=== PATIENT | male | born 1985 | race Caucasian/White ===

== ENCOUNTER 2016-10-04 15:04 | Emergency (ER) | payer OTHER ==
[2016-10-04] MEDS ORDERED: BACTRIM 160MG/800MG DS TAB As Ordered ONE (16:41)
--- NOTE | 2016-10-04 16:47 | EDDOCDS ---
Nurse's Notes [facility] Name: Ayush Ochoa Age: 31 yrs Sex: Male : 1985 Arrival Date: 10/04/2016 Time: 15:04 Bed Triage 2 Private MD: [facility] Diagnosis: Cutaneous abscess of groin-vs lymphadenopathy;Dysuria Presentation: 10/04 15:16 Presenting complaint: Patient states: Lump to left groin area. Having some erectile jo3 dysfunction for approximately 2 weeks. Went to PCP 1 month ago and was noted to have asymptomatic blood in urine. Has not yet followed up. STD screening completed at that time and all was negative. Adult Sepsis Screening: The patient does not have new or worsening altered mentation. Patient's respiratory rate is less than 22. Systolic blood pressure is greater than 100. Patient has a qSOFA score of 0- Negative Sepsis Screen. Suicide/Homicide risk assessment- the patient denies having any suicidal and/or homicidal ideations and does not present with any other emotional, behavioral or mental health complaints. Status: Patient is not a rural service engineer or dependent. Transition of care: patient was not received from another setting of care. 15:16 Acuity: JAMES Level 3 jo3 15:16 Method Of Arrival: Walkin/Carried/Asstd jo3 Triage Assessment: 15:20 General: Appears in no apparent distress, comfortable, Behavior is appropriate for age, jo3 cooperative, pleasant. Pain: Pain currently is 1 out of 10 on a pain scale. HIV screening NA for this visit Offered previously. Neurological: No deficits noted. Level of Consciousness is awake, alert, Oriented to person, place, time. Respiratory: Airway is patent Respiratory effort is even, unlabored. Derm: Skin is pink, warm & dry. Historical: - Allergies: No known drug Allergies; - Home Meds: 1. none - PMHx: Kidney stones; - PSHx: Appendectomy; - Social history: Smoking status: Patient uses tobacco products, heavy tobacco smoker. No barriers to communication noted, The patient speaks fluent Algerian, Speaks appropriately for age. - Family history: Not pertinent. - : The pt / caregiver states he / she is not on anticoagulants. Home medication list is obtained from the patient. - Exposure Risk Screening:: None identified. Screenin:45 Screening information is obtained from the patient. Fall risk: No risks identified. pml Assistance ADL's: requires no assistance with activities of daily living. Abuse/DV Screen: The patient / caregiver reports he/she is: not in a situation that causes fear, pain or injury. Nutritional screening: No deficits noted. Advance Directives: Currently, there is no health care proxy. home support is adequate. Assessment: 16:45 General: Appears in no apparent distress, comfortable, Behavior is appropriate for age, pml cooperative. Pain: Location: pelvis Pain currently is 6 out of 10 on a pain scale. Neurological: Level of Consciousness is awake, alert, Oriented to person, place, time. Cardiovascular: Capillary refill < 3 seconds. Respiratory: Airway is patent Respiratory effort is even, unlabored. GI: Abdomen is non- distended. Derm: Skin is pink, warm & dry. Vital Signs: 15:07 BP 147 / 91 LA Sitting (auto/reg); Pulse 87 LA; Resp 18 S; Temp 98.6(O); Pulse Ox 100% mt4 on R/A; Weight 74.84 kg (R); Height 6 ft. 1 in. (185.42 cm) (R); Pain 1/10; 15:07 Body Mass Index 21.77 (74.84 kg, 185.42 cm) mt4 Vitals: 15:07 Log In Time: October 04, 2016 at 15:04. mt4 ED Course: 15:05 Patient visited by Kathleen Hale. mt4 15:05 Patient moved to Waiting mt4 15:06 [facility] is Private Physician. mt4 15:07 Patient moved to Pre E mt4 15:19 Triage Initiated jo3 15:21 Patient visited by Candy Campbell RN. jo3 15:26 Patient moved to Triage 2 sew 15:39 Patient name changed from Ayush\S\J\S\Gabriela\S\ to Ayush\S\Deepak\S\Gabriela. EDMS 15:41 [place] [place] was scanned into [employer] and attached to record. gb 16:30 [facility]iesha Head [facility]-C [facility] dt4 16:30 Wilbur Koenig MD is Attending Physician. dt4 16:30 Patient visited by Tiesha Head PA-C. dt4 16:40 Cheyenne Barswell MD is Referral Physician. dt4 16:45 The patient / caregiver is instructed regarding the plan of care and ED course. Patient pml has correct armband on for positive identification. Bed in low position. Call light in reach. 16:45 No IV's were initiated during this patient's visit. No procedures done that require pml assistance. Administered Medications: 16:45 Drug: Trimethoprim-Sulfamethoxazole 1 tabs [sulfamethoxazole 800 mg-trimethoprim 160 mg pml tablet (1 tabs)] Route: PO; Order Results: There are currently no results for this order. Outcome: 16:40 Discharge ordered by Provider. dt4 16:45 Discharge Assessment: Patient awake, alert and oriented x 3. No cognitive and/or pml functional deficits noted. Patient verbalized understanding of disposition instructions. patient administered narcotics - no. The following High Risk Discharge criteria are identified: None. Discharged to home ambulatory. Condition: good Condition: stable. Discharge instructions given to patient, Instructed on discharge instructions, follow up and referral plans. medication usage, Demonstrated understanding of instructions, medications, Pt was receptive of discharge instructions/ teaching. Prescriptions given X 1. No special radiology studies were completed. Property sent home with patient. 16:46 Patient left the ED. pml Signatures: Dispatcher [employer] EDMS Marisela Barnhart, Reg Reg Candy Aguilar RN RN jo3 Thomas, Melissa mt4 Elise Danielle RN RN pml Wallace, Sarah sew Tschudi, Diane, RIANA PA-C dt4 MTDD
--- NOTE | 2016-10-04 16:47 | EDDOCDS ---
Physician Documentation [facility] Name: Ayush Ochoa Age: 31 yrs Sex: Male : 1985 Arrival Date: 10/04/2016 Time: 15:04 Bed Triage 2 Private MD: [facility] Disposition: 10/04/16 16:40 Discharged to Home/Self Care. Impression: Cutaneous abscess of groin - vs lymphadenopathy, Dysuria. - Condition is Stable. - Discharge Instructions: Abscess, Dysuria. - Prescriptions for Bactrim DS 800- 160 mg Oral Tablet - take 1 tablet by ORAL route every 12 hours for 7 days; 14 tablet. - Medication Reconciliation, Local Pharmacy Hours form. - Follow up: Emergency Department; When: As needed; Reason: Worsening of conditions. Follow up: Cheyenne Braswell MD; When: Call to arrange an appointment; Reason: Wound/Symptom Recheck, Further diagnostic work-up, Recheck today's complaints, Continuance of care, To establish care. - Problem is new. - Symptoms are unchanged. - Notes: TAKE THE ANTIBIOTIC DIRECTED UNTIL IT IS GONE. CALL DR. BRASWELL'S OFFICE TOMORROW TO SCHEDULE AN APPOINTMENT TO BE SEEN. Historical: - Allergies: No known drug Allergies; - Home Meds: 1. none - PMHx: Kidney stones; - PSHx: Appendectomy; - Social history: Smoking status: Patient uses tobacco products, heavy tobacco smoker. No barriers to communication noted, The patient speaks fluent Faroese, Speaks appropriately for age. - Family history: Not pertinent. - : The pt / caregiver states he / she is not on anticoagulants. Home medication list is obtained from the patient. - Exposure Risk Screening:: None identified. Vital Signs: 10/04 15:07 BP 147 / 91 LA Sitting (auto/reg); Pulse 87 LA; Resp 18 S; Temp 98.6(O); Pulse Ox 100% mt4 on R/A; Weight 74.84 kg / 164.99 lbs (R); Height 6 ft. 1 in. (185.42 cm) (R); Pain 1/10; 15:07 Body Mass Index 21.77 (74.84 kg, 185.42 cm) mt4 MDM: 15:41 [place] [place] was scanned into [employer] and attached to record. gb 16:39 Trimethoprim-Sulfamethoxazole 160 mg-800 mg (DS) 1 tabs PO once ordered. dt4 16:45 Trimethoprim-Sulfamethoxazole 160 mg-800 mg (DS) 1 tabs PO once ordered. pml Administered Medications: 16:45 Drug: Trimethoprim-Sulfamethoxazole 1 tabs [sulfamethoxazole 800 mg-trimethoprim 160 mg pml tablet (1 tabs)] Route: PO; Signatures: Marisela Barnhart, Lucas Reg gb Candy Campbell RN RN jo3 Elise Danielle RN RN pml Tiesha Head, RIANA PANarciso dt4 The chart was reviewed and I authenticate all verbal orders and agree with the evaluation and treatment provided.Attachments: 15:41 [place] [place] gb MTDD
--- NOTE | 2016-10-06 17:48 | EDDOCDS ---
Physician Documentation [facility] Name: Ayush Ochoa Age: 31 yrs Sex: Male : 1985 Arrival Date: 10/04/2016 Time: 15:04 Bed Triage 2 Private MD: [facility] Disposition: 10/04/16 16:40 Discharged to Home/Self Care. Impression: Cutaneous abscess of groin - vs lymphadenopathy, Dysuria. - Condition is Stable. - Discharge Instructions: Abscess, Dysuria. - Prescriptions for Bactrim DS 800- 160 mg Oral Tablet - take 1 tablet by ORAL route every 12 hours for 7 days; 14 tablet. - Medication Reconciliation, Local Pharmacy Hours form. - Follow up: Emergency Department; When: As needed; Reason: Worsening of conditions. Follow up: Cheyenne Braswell MD; When: Call to arrange an appointment; Reason: Wound/Symptom Recheck, Further diagnostic work-up, Recheck today's complaints, Continuance of care, To establish care. - Problem is new. - Symptoms are unchanged. - Notes: TAKE THE ANTIBIOTIC DIRECTED UNTIL IT IS GONE. CALL DR. BRASWELL'S OFFICE TOMORROW TO SCHEDULE AN APPOINTMENT TO BE SEEN. Historical: - Allergies: No known drug Allergies; - Home Meds: 1. none - PMHx: Kidney stones; - PSHx: Appendectomy; - Social history: Smoking status: Patient uses tobacco products, heavy tobacco smoker. No barriers to communication noted, The patient speaks fluent Pashto, Speaks appropriately for age. - Family history: Not pertinent. - : The pt / caregiver states he / she is not on anticoagulants. Home medication list is obtained from the patient. - Exposure Risk Screening:: None identified. Vital Signs: 10/04 15:07 BP 147 / 91 LA Sitting (auto/reg); Pulse 87 LA; Resp 18 S; Temp 98.6(O); Pulse Ox 100% mt4 on R/A; Weight 74.84 kg / 164.99 lbs (R); Height 6 ft. 1 in. (185.42 cm) (R); Pain 1/10; 15:07 Body Mass Index 21.77 (74.84 kg, 185.42 cm) mt4 MDM: 15:41 [facility] [place] Payment Agreement was scanned into [email or web address] and attached to record. gb 16:39 Trimethoprim-Sulfamethoxazole 160 mg-800 mg (DS) 1 tabs PO once ordered. dt4 16:45 Trimethoprim-Sulfamethoxazole 160 mg-800 mg (DS) 1 tabs PO once ordered. pml 22:17 T-Sheet-- Draft Copy was scanned into [email or web address] and attached to record. klr Administered Medications: 16:45 Drug: Trimethoprim-Sulfamethoxazole 1 tabs [sulfamethoxazole 800 mg-trimethoprim 160 mg pml tablet (1 tabs)] Route: PO; Signatures: Marisela Barnhart, Reg Reg gb Candy CampbellRN RN jo3 Elise DanielleRN RN pml Tiesha Head, RIANA PANarciso dt4 Jennifer San The chart was reviewed and I authenticate all verbal orders and agree with the evaluation and treatment provided.Attachments: 15:41 REPLACED BY [facility] Payment Agreement gb 22:17 T-Sheet-- Draft Copy klr Chart Complete MTDD
--- NOTE | 2016-10-06 17:48 | EDDOCDS ---
Physician Documentation [facility] Name: Ayush Ochoa Age: 31 yrs Sex: Male : 1985 Arrival Date: 10/04/2016 Time: 15:04 Bed Triage 2 Private MD: [facility] Disposition: 10/04/16 16:40 Discharged to Home/Self Care. Impression: Cutaneous abscess of groin - vs lymphadenopathy, Dysuria. - Condition is Stable. - Discharge Instructions: Abscess, Dysuria. - Prescriptions for Bactrim DS 800- 160 mg Oral Tablet - take 1 tablet by ORAL route every 12 hours for 7 days; 14 tablet. - Medication Reconciliation, Local Pharmacy Hours form. - Follow up: Emergency Department; When: As needed; Reason: Worsening of conditions. Follow up: Cheyenne Braswell MD; When: Call to arrange an appointment; Reason: Wound/Symptom Recheck, Further diagnostic work-up, Recheck today's complaints, Continuance of care, To establish care. - Problem is new. - Symptoms are unchanged. - Notes: TAKE THE ANTIBIOTIC DIRECTED UNTIL IT IS GONE. CALL DR. BRASWELL'S OFFICE TOMORROW TO SCHEDULE AN APPOINTMENT TO BE SEEN. Historical: - Allergies: No known drug Allergies; - Home Meds: 1. none - PMHx: Kidney stones; - PSHx: Appendectomy; - Social history: Smoking status: Patient uses tobacco products, heavy tobacco smoker. No barriers to communication noted, The patient speaks fluent Bulgarian, Speaks appropriately for age. - Family history: Not pertinent. - : The pt / caregiver states he / she is not on anticoagulants. Home medication list is obtained from the patient. - Exposure Risk Screening:: None identified. Vital Signs: 10/04 15:07 BP 147 / 91 LA Sitting (auto/reg); Pulse 87 LA; Resp 18 S; Temp 98.6(O); Pulse Ox 100% mt4 on R/A; Weight 74.84 kg / 164.99 lbs (R); Height 6 ft. 1 in. (185.42 cm) (R); Pain 1/10; 15:07 Body Mass Index 21.77 (74.84 kg, 185.42 cm) mt4 MDM: 15:41 [facility] [place] Payment Agreement was scanned into [employer] and attached to record. gb 16:39 Trimethoprim-Sulfamethoxazole 160 mg-800 mg (DS) 1 tabs PO once ordered. dt4 16:45 Trimethoprim-Sulfamethoxazole 160 mg-800 mg (DS) 1 tabs PO once ordered. pml 22:17 T-Sheet-- Draft Copy was scanned into [employer] and attached to record. klr Administered Medications: 16:45 Drug: Trimethoprim-Sulfamethoxazole 1 tabs [sulfamethoxazole 800 mg-trimethoprim 160 mg pml tablet (1 tabs)] Route: PO; Signatures: Marisela Barnhart, Reg Reg gb Candy CampbellRN RN jo3 Elise DanielleRN RN pml Tiesha Head, RIANA PANarciso dt4 Jennifer San The chart was reviewed and I authenticate all verbal orders and agree with the evaluation and treatment provided.Attachments: 15:41 [facility] Payment Agreement gb 22:17 T-Sheet-- Draft Copy klr Chart Complete MTDD
--- NOTE | 2016-10-06 17:48 | EDDOCDS ---
Nurse's Notes [facility] Name: Ayush Ochoa Age: 31 yrs Sex: Male : 1985 Arrival Date: 10/04/2016 Time: 15:04 Bed Triage 2 Private MD: [facility] Diagnosis: Cutaneous abscess of groin-vs lymphadenopathy;Dysuria Presentation: 10/04 15:16 Presenting complaint: Patient states: Lump to left groin area. Having some erectile jo3 dysfunction for approximately 2 weeks. Went to PCP 1 month ago and was noted to have asymptomatic blood in urine. Has not yet followed up. STD screening completed at that time and all was negative. Adult Sepsis Screening: The patient does not have new or worsening altered mentation. Patient's respiratory rate is less than 22. Systolic blood pressure is greater than 100. Patient has a qSOFA score of 0- Negative Sepsis Screen. Suicide/Homicide risk assessment- the patient denies having any suicidal and/or homicidal ideations and does not present with any other emotional, behavioral or mental health complaints. Status: Patient is not a clinical services director or dependent. Transition of care: patient was not received from another setting of care. 15:16 Acuity: JAMES Level 3 jo3 15:16 Method Of Arrival: Walkin/Carried/Asstd jo3 Triage Assessment: 15:20 General: Appears in no apparent distress, comfortable, Behavior is appropriate for age, jo3 cooperative, pleasant. Pain: Pain currently is 1 out of 10 on a pain scale. HIV screening NA for this visit Offered previously. Neurological: No deficits noted. Level of Consciousness is awake, alert, Oriented to person, place, time. Respiratory: Airway is patent Respiratory effort is even, unlabored. Derm: Skin is pink, warm & dry. Historical: - Allergies: No known drug Allergies; - Home Meds: 1. none - PMHx: Kidney stones; - PSHx: Appendectomy; - Social history: Smoking status: Patient uses tobacco products, heavy tobacco smoker. No barriers to communication noted, The patient speaks fluent Vincentian, Speaks appropriately for age. - Family history: Not pertinent. - : The pt / caregiver states he / she is not on anticoagulants. Home medication list is obtained from the patient. - Exposure Risk Screening:: None identified. Screenin:45 Screening information is obtained from the patient. Fall risk: No risks identified. pml Assistance ADL's: requires no assistance with activities of daily living. Abuse/DV Screen: The patient / caregiver reports he/she is: not in a situation that causes fear, pain or injury. Nutritional screening: No deficits noted. Advance Directives: Currently, there is no health care proxy. home support is adequate. Assessment: 16:45 General: Appears in no apparent distress, comfortable, Behavior is appropriate for age, pml cooperative. Pain: Location: pelvis Pain currently is 6 out of 10 on a pain scale. Neurological: Level of Consciousness is awake, alert, Oriented to person, place, time. Cardiovascular: Capillary refill < 3 seconds. Respiratory: Airway is patent Respiratory effort is even, unlabored. GI: Abdomen is non- distended. Derm: Skin is pink, warm & dry. Vital Signs: 15:07 BP 147 / 91 LA Sitting (auto/reg); Pulse 87 LA; Resp 18 S; Temp 98.6(O); Pulse Ox 100% mt4 on R/A; Weight 74.84 kg (R); Height 6 ft. 1 in. (185.42 cm) (R); Pain 1/10; 15:07 Body Mass Index 21.77 (74.84 kg, 185.42 cm) mt4 Vitals: 15:07 Log In Time: October 04, 2016 at 15:04. mt4 ED Course: 15:05 Patient visited by Kathleen Hale. mt4 15:05 Patient moved to Waiting mt4 15:06 [facility] is Private Physician. mt4 15:07 Patient moved to Pre E mt4 15:19 Triage Initiated jo3 15:21 Patient visited by Candy Campbell RN. jo3 15:26 Patient moved to Triage 2 sew 15:39 Patient name changed from Ayush\S\J\S\Gabriela\S\ to Ayush\S\Deepak\S\Gabriela. EDMS 15:41 [place] [place] Agreement was scanned into [employer] and attached to record. gb 16:30 [facility]ies[facility] Head [facility] dt4 16:30 Wilbur Koenig MD is Attending Physician. dt4 16:30 Patient visited by Tiesha Head PA-C. dt4 16:40 Cheyenne Braswell MD is Referral Physician. dt4 16:45 The patient / caregiver is instructed regarding the plan of care and ED course. Patient pml has correct armband on for positive identification. Bed in low position. Call light in reach. 16:45 No IV's were initiated during this patient's visit. No procedures done that require pml assistance. 22:17 T-Sheet-- Draft Copy was scanned into [employer] and attached to record. klr Administered Medications: 16:45 Drug: Trimethoprim-Sulfamethoxazole 1 tabs [sulfamethoxazole 800 mg-trimethoprim 160 mg pml tablet (1 tabs)] Route: PO; Order Results: There are currently no results for this order. Outcome: 16:40 Discharge ordered by Provider. dt4 16:45 Discharge Assessment: Patient awake, alert and oriented x 3. No cognitive and/or pml functional deficits noted. Patient verbalized understanding of disposition instructions. patient administered narcotics - no. The following High Risk Discharge criteria are identified: None. Discharged to home ambulatory. Condition: good Condition: stable. Discharge instructions given to patient, Instructed on discharge instructions, follow up and referral plans. medication usage, Demonstrated understanding of instructions, medications, Pt was receptive of discharge instructions/ teaching. Prescriptions given X 1. No special radiology studies were completed. Property sent home with patient. 16:46 Patient left the ED. pml Signatures: [facility] Marisela Barnhart, Reg Candy EscobarRN Kathleen Pederson mt4 Elise Danielle RN RN pml Wallace, Sarah sew Tschudi, Diane, PA-C PANarciso dt4 Jennifer San Chart Complete MTDLatisha
== END 2016-10-04 16:46 | disposition home or self-care (01) ==
LOC: M ED 15:04
DX: R30.0 Dysuria (principal); F17.210 Nicotine dependence, cigarettes, uncomplicated

== ENCOUNTER → 2016-10-07 | Outpatient (REF) | payer OTHER | LOC: M SMT 12:50 | PROVIDERS: ATTEND Nurse Practitioner Women's Health | DX: R31.29 Other microscopic hematuria (principal) ==

== ENCOUNTER 2016-12-27 01:57 | Emergency (ER) | payer OTHER, SELFPAY ==
[~2016-12-27] VITALS: Ht 185.4 cm; Wt 77.1 kg
[2016-12-27] MEDS ORDERED: AUGM875T27 PO (04:56)
[2016-12-27] MEDS ORDERED: AUGMENTIN 875 MG TAB PO ONE (05:00)
[2016-12-27 05:06] VITALS: BP 144/91
== END 2016-12-27 05:08 | disposition home or self-care (01) ==
LOC: M ED 02:52
DX: J02.9 Acute pharyngitis, unspecified (principal); H66.92 Otitis media, unspecified, left ear; F17.200 Nicotine dependence, unspecified, uncomplicated

== ENCOUNTER → 2018-05-30 | Outpatient (CLI) | payer OTHER ==
[2018-06-01 08:09] LABS: RUBEOLA IgG ANTIBODY >300.0 AU/mL (Immune >29.9)
[2018-06-01 10:25] LABS: RUBELLA IgG QUALITATIVE IMMUNE (IMMUNE)
[2018-06-01 10:25] LABS: HEPATITIS B SURFACE ANTIBODY POSITIVE (POSITIVE)
[2018-06-03 00:07] LABS: HERPES ZOSTER, VARICELLA IgG 1766 index (Immune >165)
[2018-06-03 00:07] LABS: HERPES ZOSTER, VARICELLA IgM <0.91 index (0.00-0.90); MUMPS VIRUS IgG ANTIBODY 29.6 AU/mL (Immune >10.9)
== END ==
LOC: M WUC 13:31
DX: Z02.0 Encounter for examination for admission to educational institution (principal)
CPT/HCPCS: 86762

== ENCOUNTER 2018-07-02 02:31 | Emergency (ER) | payer OTHER, MEDICAID ==
[2018-07-02] MEDS: KETOROLAC 30 MG/ML VIAL (J1885) IV (03:09)
[2018-07-02 03:13] LABS: BASO % 0.3 % (0.0-1.0); EOS # 0.4 10^3/uL (0.0-0.50); EOS % 2.6 % (0.0-3.0); HEMATOCRIT 44.6 % (42.0-52.0); HEMOGLOBIN 15.2 g/dl (13.5-17.5); IMMATURE GRANULOCYTE % 0.3 % (0-3.0); LYMPH % 21.1 % (24.0-44.0); MEAN CORPUSCULAR HEMOGLOBIN 31.3 pg (27.0-33.0); MEAN CORPUSCULAR HGB CONC 34.1 g/dl (32.0-36.5); MONO # 1.2 10^3/uL (0.0-0.8); NEUTROPHILS # 9.8 10^3/uL (1.8-7.7); NEUTROPHILS % 67.7 % (36.0-66.0); PLATELET COUNT, AUTOMATED 243 10^3/uL (150-450); RED BLOOD COUNT 4.85 10^6/uL (4.30-6.10); WHITE BLOOD COUNT 14.4 10^3/uL (4.0-10.0)
[2018-07-02 03:32] LABS: ANION GAP 10 MEQ/L (8-16); BLOOD UREA NITROGEN 18 MG/DL (7-18); CALCIUM LEVEL 8.9 MG/DL (8.5-10.1); CARBON DIOXIDE LEVEL 22 MEQ/L (21-32); CHLORIDE LEVEL 107 MEQ/L (98-107); CREATININE FOR GFR 1.33 MG/DL (0.70-1.30); GLOMERULAR FILTRATION RATE > 60.0 (>60); GLUCOSE, FASTING 134 MG/DL (70-100); POTASSIUM SERUM 3.6 MEQ/L (3.5-5.1); SODIUM LEVEL 139 MEQ/L (136-145)
[2018-07-02 04:48] LABS: KETONE, URINE AUTO RFX TRACE mg/dL (NEGATIVE); LEUKOCYTE ESTERASE UR AUTO RFX NEGATIVE (NEGATIVE); NITRITE, URINE AUTO RFX NEGATIVE (NEGATIVE); RBC, URINE AUTO RFX 78 /HPF (0-3); SPECIFIC GRAVITY UR AUTO RFX 1.019 (1.002-1.035); SQUAM EPITHELIAL CELL UR AURFX 0 /HPF (0-6); WBC, URINE AUTO RFX 10 /HPF (0-3)
[2018-07-02] MEDS: TAMSULOSIN 0.4 MG CAP PO (05:11)
[2018-07-02] MEDS: OXYCODONE/APAP 5MG/325MG(BULK FOR ED) 1 TABLET PO (05:12)
== END 2018-07-02 05:19 | disposition home or self-care (01) ==
LOC: M ED 02:31
DX: N20.1 Calculus of ureter (principal); N20.0 Calculus of kidney; Z87.442 Personal history of urinary calculi; Z72.0 Tobacco use; F12.10 Cannabis abuse, uncomplicated; Z79.899 Other long term (current) drug therapy
CPT/HCPCS: J1885